=== PATIENT | female | born 1935 | race Caucasian/White ===

== ENCOUNTER 2017-01-11 20:26 | Emergency (ER) | payer OTHER ==
[~2017-01-11 20:26] MED LIST: ALPRAZOLAM0.5 MG PO; ASPIR 8181 MG PO; CORDARONE 200M200 MG PO; ELAVIL 10 MG TA10 MG PO; ELIQUIS 2.5 MG2.5 MG PO; FLEXERIL 10 MG10 MG PO; ISOSORBIDE MONO30 MG PO; LASIX20 MG PO; LASIX40 MG PO; LIPITOR TAB 1010 MG PO; PRILOSEC OTC20 MG PO; RANEXA500 MG PO
[2017-01-12 00:43] LABS: HEMOGLOBIN 9.5 gm/dl (12.3-15.3); RED BLOOD COUNT 3.21 M/UL (4.00-5.10); WHITE BLOOD COUNT 6.7 K/UL (4.5-11.0)
[2017-05-29] MEDS ORDERED: ALPRAZOLAM0.5 MG PO (17:44)
[2017-05-29] MEDS ORDERED: ELAVIL 50 MG TA50 MG PO (17:53)
[2017-05-29] MEDS ORDERED: OMEPRAZOLE40 MG PO (17:56)
[2017-05-29] MEDS ORDERED: VITAMIN C 500500 MG PO (17:58)
[2017-05-29] MEDS ORDERED: FEROSUL325 MG PO (17:58)
[2017-05-29] MEDS ORDERED: EFFER-K 10 MEQ10 MEQ PO (17:59)
[2017-05-29] MEDS ORDERED: SINGULAIR10 MG PO (18:00)
== END 2017-01-12 05:10 | disposition home or self-care (01) ==
LOC: ER1 20:26
PROVIDERS: Family Medicine
DX: N39.0 Urinary tract infection, site not specified (principal); R63.0 Anorexia; E78.5 Hyperlipidemia, unspecified; Z88.5 Allergy status to narcotic agent; Z79.01 Long term (current) use of anticoagulants; Z79.82 Long term (current) use of aspirin; Z79.899 Other long term (current) drug therapy
CPT/HCPCS: 36415; 80053; 81001; 82150; 83690; 84703; 85025; 87086; 93005; 96361; 96365; 99284

== ENCOUNTER 2017-01-18 12:16 | Emergency (ER) | payer OTHER ==
[2017-01-18 15:13] LABS: HEMOGLOBIN 9.2 gm/dl (12.3-15.3); RED BLOOD COUNT 3.16 M/UL (4.00-5.10); WHITE BLOOD COUNT 5.6 K/UL (4.5-11.0)
[2017-05-29] MEDS ORDERED: ALPRAZOLAM0.5 MG PO (17:44)
[2017-05-29] MEDS ORDERED: ELAVIL 50 MG TA50 MG PO (17:53)
[2017-05-29] MEDS ORDERED: OMEPRAZOLE40 MG PO (17:56)
[2017-05-29] MEDS ORDERED: FEROSUL325 MG PO (17:58)
[2017-05-29] MEDS ORDERED: VITAMIN C 500500 MG PO (17:58)
[2017-05-29] MEDS ORDERED: EFFER-K 10 MEQ10 MEQ PO (17:59)
[2017-05-29] MEDS ORDERED: SINGULAIR10 MG PO (18:00)
== END 2017-01-18 20:28 | disposition home or self-care (01) ==
LOC: ER1 12:16
PROVIDERS: Student in an Organized Health Care Education/Training Program
DX: I12.9 Hypertensive chronic kidney disease with stage 1 through stage 4 chronic kidney disease, or unspecified chronic kidney disease (principal); N18.9 Chronic kidney disease, unspecified; D64.9 Anemia, unspecified; K62.5 Hemorrhage of anus and rectum; I48.91 Unspecified atrial fibrillation; I10 Essential (primary) hypertension; Z90.49 Acquired absence of other specified parts of digestive tract; Z87.891 Personal history of nicotine dependence; Z88.0 Allergy status to penicillin; Z88.5 Allergy status to narcotic agent; Z88.8 Allergy status to other drugs, medicaments and biological substances
CPT/HCPCS: 36415; 71010; 80053; 81001; 82272; 82550; 82553; 83874; 83880; 84443; 84484; 85025; 85610; 85730; 86850; 86900; 86901; 87086; 93005; 96374; 99291; C9113; J7040

== ENCOUNTER → 2017-02-08 | Outpatient (CLI) | payer OTHER ==
[~2017-02-08] MED LIST changes: +EFFER-K 10 MEQ10 MEQ PO; +ELAVIL 50 MG TA50 MG PO; +FEROSUL325 MG PO; +OMEPRAZOLE40 MG PO; +SINGULAIR10 MG PO; +VITAMIN C 500500 MG PO
== END ==
LOC: RT 10:31
DX: R00.1 Bradycardia, unspecified (principal)

== ENCOUNTER 2017-02-15 11:12 | Emergency (ER) | payer OTHER ==
[~2017-02-15 11:12] MED LIST changes: -EFFER-K 10 MEQ10 MEQ PO; -ELAVIL 50 MG TA50 MG PO; -FEROSUL325 MG PO; -OMEPRAZOLE40 MG PO; -SINGULAIR10 MG PO; -VITAMIN C 500500 MG PO
[2017-02-15 12:55] LABS: HEMOGLOBIN 9.5 gm/dl (12.3-15.3); RED BLOOD COUNT 3.45 M/UL (4.00-5.10)
[2017-05-29] MEDS ORDERED: ALPRAZOLAM0.5 MG PO (17:44)
[2017-05-29] MEDS ORDERED: ELAVIL 50 MG TA50 MG PO (17:53)
[2017-05-29] MEDS ORDERED: OMEPRAZOLE40 MG PO (17:56)
[2017-05-29] MEDS ORDERED: FEROSUL325 MG PO (17:58)
[2017-05-29] MEDS ORDERED: VITAMIN C 500500 MG PO (17:58)
[2017-05-29] MEDS ORDERED: EFFER-K 10 MEQ10 MEQ PO (17:59)
[2017-05-29] MEDS ORDERED: SINGULAIR10 MG PO (18:00)
== END 2017-02-15 19:15 | disposition home or self-care (01) ==
LOC: ER1 11:12
PROVIDERS: Emergency Medicine
DX: E87.6 Hypokalemia (principal); D64.9 Anemia, unspecified; N20.0 Calculus of kidney; I48.91 Unspecified atrial fibrillation; I25.10 Atherosclerotic heart disease of native coronary artery without angina pectoris; Z90.49 Acquired absence of other specified parts of digestive tract; Z87.891 Personal history of nicotine dependence; Z88.5 Allergy status to narcotic agent; Z79.82 Long term (current) use of aspirin; Z79.899 Other long term (current) drug therapy
CPT/HCPCS: 36415; 70450; 70486; 80053; 81001; 83690; 84484; 85025; 87086; 93005; 99285

== ENCOUNTER 2017-02-18 09:21 | Emergency (ER) | payer OTHER ==
[2017-02-18 10:11] LABS: HEMOGLOBIN 8.5 gm/dl (12.3-15.3); RED BLOOD COUNT 3.11 M/UL (4.00-5.10); WHITE BLOOD COUNT 6.1 K/UL (4.5-11.0)
[2017-05-29] MEDS ORDERED: ALPRAZOLAM0.5 MG PO (17:44)
[2017-05-29] MEDS ORDERED: ELAVIL 50 MG TA50 MG PO (17:53)
[2017-05-29] MEDS ORDERED: OMEPRAZOLE40 MG PO (17:56)
[2017-05-29] MEDS ORDERED: FEROSUL325 MG PO (17:58)
[2017-05-29] MEDS ORDERED: VITAMIN C 500500 MG PO (17:58)
[2017-05-29] MEDS ORDERED: EFFER-K 10 MEQ10 MEQ PO (17:59)
[2017-05-29] MEDS ORDERED: SINGULAIR10 MG PO (18:00)
== END 2017-02-18 13:00 | disposition home or self-care (01) ==
LOC: ER1 09:21
PROVIDERS: Family Medicine
DX: R11.2 Nausea with vomiting, unspecified (principal); I10 Essential (primary) hypertension; I51.9 Heart disease, unspecified; D64.9 Anemia, unspecified; N28.9 Disorder of kidney and ureter, unspecified; Z90.710 Acquired absence of both cervix and uterus; Z88.5 Allergy status to narcotic agent
CPT/HCPCS: 36415; 71010; 80053; 81001; 82550; 82553; 83690; 83874; 84484; 85025; 87086; 93005; 96374; 96376; 99284; J2405; J7030

== ENCOUNTER 2020-11-27 16:38 | Inpatient (IN) | payer OTHER ==
[~2020-11-27] VITALS: Ht 162.6 cm; Wt 45.4 kg
[~2020-11-27 16:38] MED LIST changes: +BIOTIN2500 MCG PO; +CANDESARTAN CILE8 MG PO; +CARDIZEM 60MG T60 MG PO; -CORDARONE 200M200 MG PO; +DEPAKOTE250 MG PO; +EFFER-K 10 MEQ10 MEQ PO; +ELAVIL 50 MG TA50 MG PO; +FEROSUL325 MG PO; +LOW DOSE ASPIRI81 MG PO; +MAGNESIUM250 M1 PO; +NITROSTAT0.4 MG SL; +OMEPRAZOLE40 MG PO; +PACERONE200 MG PO; +PRESERVISION A1 EACH PO; +SINGULAIR10 MG PO; +VITAMIN C 500500 MG PO; +VITAMIN C500 M2 PO; +XANAX 0.25 MG0.25 MG PO; +ZETIA 10 MG TAB10 MG PO
[2020-11-27 17:20] LABS: HEMOGLOBIN 10.3 gm/dl (12.3-15.3); RED BLOOD COUNT 3.18 M/UL (4.00-5.10); WHITE BLOOD COUNT 4.5 K/UL (4.5-11.0)
[2020-11-27 17:39] LABS: BUN/CREATININE RATIO 22 (0-10)
[2020-11-27] MEDS ORDERED: NAMENDA10 MG PO (21:37)
[2020-11-27] MEDS ORDERED: EXELON1 EACH TOP (21:37)
[2020-11-27] MEDS ORDERED: DEPAKOTE125 MG PO (21:38)
[2020-11-27] MEDS ORDERED: FOSAMAX70 MG PO (21:43)
[2020-11-27] MEDS ORDERED: STOOL SOFTENER250 MG PO (21:47)
[2020-11-27] MEDS ORDERED: MYRBETRIQ25 MG PO (21:48)
[2020-11-27] MEDS ORDERED: MIRALAX17 GM PO (21:50)
[2020-11-27] MEDS ORDERED: ZOLOFT100 MG PO (21:51)
[2020-11-27] MEDS ORDERED: DESYREL 50 MG T50 MG PO (21:51)
[2020-11-27] MEDS ORDERED: VITAMIN D31250 MCG PO (21:53)
[2020-11-27] MEDS ORDERED: BUSPIRONE HCL5 MG PO (21:55)
[2020-11-27] MEDS ORDERED: CALTRATE 600MG600 MG PO (21:56)
[2020-11-28 03:02] LABS: HEMOGLOBIN 11.2 gm/dl (12.3-15.3); RED BLOOD COUNT 3.47 M/UL (4.00-5.10)
== END 2020-11-29 14:59 | DRG 69 ==
LOC: ER1 16:38 → PROG CARE 20:24 → CDU 20:24 → MED SURG 4 23:19 → CDU 23:30 → PROG CARE 11-28 00:18
PROVIDERS: Preventive Medicine Occupational Medicine; ADMIT Family Medicine
DX: G45.9 Transient cerebral ischemic attack, unspecified (principal); R47.01 Aphasia; I16.1 Hypertensive emergency; D64.9 Anemia, unspecified; Z20.822 Contact with and (suspected) exposure to COVID-19; I10 Essential (primary) hypertension; F03.90 Unspecified dementia, unspecified severity, without behavioral disturbance, psychotic disturbance, mood disturbance, and anxiety; F41.9 Anxiety disorder, unspecified; K21.9 Gastro-esophageal reflux disease without esophagitis; I07.1 Rheumatic tricuspid insufficiency; I48.91 Unspecified atrial fibrillation; Z88.6 Allergy status to analgesic agent; Z88.1 Allergy status to other antibiotic agents; Z88.5 Allergy status to narcotic agent; Z88.0 Allergy status to penicillin; Z79.82 Long term (current) use of aspirin; Z79.899 Other long term (current) drug therapy
CPT/HCPCS: ECHO; 0240U; 36600; 70450; 70551; 71045; 80053; 80061; 80307; 81001; 82140; 82550; 82553; 82607; 82803; 83690; 83874; 83880; 84439; 84443; 84484; 85025; 85652; 86140; 87086; 93306; 93880; 96365; 96366; 97161; 99285; G0480; J1644; J2060; J7030

== ENCOUNTER → 2021-03-23 | Outpatient (CLI) | payer OTHER ==
[~2021-03-23] MED LIST changes: +BUSPIRONE HCL5 MG PO; +CALTRATE 600MG600 MG PO; +DEPAKOTE125 MG PO; +DESYREL 50 MG T50 MG PO; +EXELON1 EACH TOP; +FOSAMAX70 MG PO; +MIRALAX17 GM PO; +MYRBETRIQ25 MG PO; +NAMENDA10 MG PO; +STOOL SOFTENER250 MG PO; +VITAMIN D31250 MCG PO; +ZOLOFT100 MG PO
== END ==
LOC: KOH-I 13:09
DX: T14.90XA Injury, unspecified, initial encounter (principal); M79.89 Other specified soft tissue disorders
CPT/HCPCS: 73630

== ENCOUNTER 2021-10-09 18:16 | Emergency (ER) | payer OTHER ==
[2021-10-09 19:23] LABS: HEMOGLOBIN 10.2 gm/dl (12.3-15.3); RED BLOOD COUNT 3.19 M/UL (4.00-5.10); WHITE BLOOD COUNT 5.3 K/UL (4.5-11.0)
== END 2021-10-10 01:23 | disposition home or self-care (01) ==
LOC: ER1 18:16
PROVIDERS: Family Medicine
DX: Z04.3 Encounter for examination and observation following other accident (principal); I10 Essential (primary) hypertension
CPT/HCPCS: 71045; 80053; 81001; 85025; 99284; J2060; J3486